=== PATIENT | male | born 1985 | race Caucasian/White ===

== ENCOUNTER 2017-10-07 09:53 | Emergency (ER) | payer OTHER ==
[2017-10-07 10:33] VITALS: BP 141/69
[2017-10-07] MEDS ORDERED: Bupivacaine 0.25% SDV* 30 ML INJ ONE (10:42)
--- NOTE | 2017-10-07 12:02 | UC ---
Roberto Spears Rebecca, scribed for Joo Brandon MD on 10/07/17 at 1041 . Back Pain HPI - HPI Summary HPI Summary: Pt is a 32 y/o M who presents to [facility] c/o acute on chronic lumbar back pain. Pt reports he has been experiencing back pain for greater than 10 years, with intermittent aggravations, worse in the past 1.5 weeks. Pain is especially present in the morning, ranked 5/10 on triage and characterized as sharp and tight. Sx aggravated by standing and walking, alleviated by heat and ice. Denies numbness. No recent trauma or injury. Previously saw chiropractors and phsyical therapists, though not for the past 5 years. Has had XRs before with no Dx of ankylosing spondylitis and no FHx of ankylosing spondylitis. - History of Current Complaint Chief Complaint: UCBackPain Stated Complaint: BACK PAIN Time Seen by Provider: 10/07/17 10:34 Hx Obtained From: Patient Onset/Duration: Still Present, Worse Since - 1.5 weeks Severity Currently: Moderate Pain Intensity: 5 Pain Scale Used: 0-10 Numeric Back Pain: Is Discrete @ - Lumbar back Character: Sharp, Stiffness Aggravating Factor(s): Walking, Other - Standing Alleviating Factor(s): Heat, Cold Associated Signs And Symptoms: Positive: Negative. Negative: Numbness - Allergies/Home Medications Allergies/Adverse Reactions: Allergies Allergy/AdvReac Type Severity Reaction Status Date / Time No Known Allergies Allergy Verified 12/22/14 10:22 PMH/Surg Hx/FS Hx/Imm Hx - Additional Past Medical History Additional PMH: POSITIVE: Chronic back pain NEGATIVE: Ankylosing spondylitis, DM - Surgical History Surgical History: None - Family History Known Family History: Positive: Other - NEGATIVE: ankylosing spondylitis - Social History Alcohol Use: Daily Substance Use Type: None Smoking Status (MU): Never Smoked Tobacco Review of Systems Constitutional: Negative Skin: Negative Eyes: Negative ENT: Negative Respiratory: Negative Cardiovascular: Negative Gastrointestinal: Negative Genitourinary: Negative Motor: Negative Neurovascular: Negative Musculoskeletal: Other: - Lumbar back pain Neurological: Negative Psychological: Negative All Other Systems Reviewed And Are Negative: Yes - Comments Additional Review of Systems Comments: NEGATIVE: Numbness Physical Exam - Summary Physical Exam Summary: Appearance: Well appearing, no pain distress Skin: warm, dry, reflects adequate perfusion Head/face: normal Eyes: EOMI, KAYLIN ENT: normal Neck: supple, non-tender Respiratory: CTA, breath sounds present Cardiovascular: RRR, pulses symmetrical Musculoskeletal: strength/ROM intact, negative straight leg raise bilaterally, normal saddle sensation, has some spasm and pain, mostly in the left lumbar and left piriformis areas Neuro: normal, sensory motor intact, A&Ox3 Triage Information Reviewed: Yes Vital Signs: Initial Vital Signs Temp 98.5 F 10/07/17 10:26 Pulse 61 10/07/17 10:26 Resp 16 10/07/17 10:26 BP 141/69 10/07/17 10:26 Pulse Ox 100 10/07/17 10:26 Vital Signs Reviewed: Yes Back Pain Course/Dx - Differential Dx/Diagnosis Provider Diagnoses: sacroiliitis, acute low back pain Discharge - Sign-Out/Discharge Documenting (check all that apply): Discharge/Admit/Transfer - Discharge - Discharge Plan Condition: Good Disposition: HOME Prescriptions: Cyclobenzaprine TAB* [Flexeril 10 MG TAB*] 10 mg PO BEDTIME PRN #10 tab PRN Reason: muscle pain Metaxalone [Skelaxin] 800 mg PO TID PRN #20 tablet PRN Reason: muscle pain Naproxen [Naproxen 500 mg tab] 500 mg PO BID PRN #10 tablet. PRN Reason: Pain Patient Education Materials: Acute Low Back Pain (ED), Sacroiliitis (ED) Referrals: [facility] [Outside] [facility] [Outside] Additional Instructions: ice, range of motion exercises, stretching, chiropractic as needed. Return if worse or other concerns. The documentation as recorded by the Roberto mulligan Rebecca accurately reflects the service I personally performed and the decisions made by me, Joo Brandon MD.
== END 2017-10-07 10:55 | disposition home or self-care (01) ==
LOC: UCEAST 09:53
DX: M46.1 Sacroiliitis, not elsewhere classified (principal); M54.5 Low back pain
CPT/HCPCS: 99212; G0463